=== PATIENT | female | born 1950 | race Caucasian/White ===

== ENCOUNTER → 2018-04-03 | Outpatient (CLI) | payer MEDICARE ==
--- NOTE | 2018-04-22 10:01 | RADIOLOGY IMAGING REPORT ---
FACILITY: [facility] [place] PATIENT NAME: SONU KENDRICK : [id number] MR: [id number] V: [id number] EXAM DATE: [id number] ORDERING PHYSICIAN: MAYO TRUJILLO TECHNOLOGIST: Maureen Hansen PROCEDURE:BILATERAL DIGITAL SCREENING MAMMOGRAM WITH CAD ASSISTED INTERPRETATION & 3D TOMOSYNTHESIS COMPARISON:None. INDICATIONS:SCREENING FINDINGS: Two requests were made to obtain patient's previous mammograms which were unsuccessful therefore the current examination will be dictated without comparison. If the previous mammograms do become available an addendum can be dictated at that time. Dense heterogeneous fibroglandular tissue is seen throughout the breasts. There is no demonstration of malignant appearing mass, malignant appearing calcifications or other secondary sign of malignancy in either breast. DIAGNOSTIC CATEGORY 0--INCOMPLETE: NEED ADDITIONAL IMAGING EVALUATION. RECOMMENDATIONS: COMPARISON TO PRIOR EXAMS REQUIRED. An addendum report will be sent after prior exams are obtained and reviewed. IMPRESSION: BIRADS 0: Incomplete. Comparison with a previous outside mammogram is recommended. Dictated by: Dhara De Dios M.D. on 04/19/2018 at 15:58 Transcribed by: MÓNICA on 04/22/2018 at 8:18 Approved by: Dhara De Dios M.D. on 04/22/2018 at 10:00 [facility]
== END ==
LOC: MAMO 08:47
PROVIDERS: ATTEND Physician Assistant
DX: Z12.31 Encounter for screening mammogram for malignant neoplasm of breast (principal); R92.8 Other abnormal and inconclusive findings on diagnostic imaging of breast
CPT/HCPCS: 77063; 77067